=== PATIENT | male | born 1960 | race Caucasian/White ===

== ENCOUNTER 2018-01-04 09:05 | Day surgery (SDC) | payer SELFPAY ==
[~2018-01-04] VITALS: Ht 188 cm; Wt 113.4 kg
[~2018-01-04 09:05] MED LIST: PERCOCET PO
[2018-01-04] MEDS ORDERED: PERCOCET 5/325M1 TAB PO (12:18)
[2018-01-04] MEDS ORDERED: MOTRIN800 MG PO (12:18)
[2018-01-04 13:06] VITALS: BP 146/87
== END 2018-01-04 13:15 | disposition home or self-care (01) | DRG 572 ==
LOC: ORM 09:05
PROVIDERS: ATTEND Surgery
PROC: 0JB80ZZ Excision of Abdomen Subcutaneous Tissue and Fascia, Open Approach (ICD-10-PCS; principal; 2018-01-04)
PROC: 0HB7XZX Excision of Abdomen Skin, External Approach, Diagnostic (ICD-10-PCS; 2018-01-04)
DX: C43.59 Malignant melanoma of other part of trunk (principal); L53.9 Erythematous condition, unspecified